=== PATIENT | female | born 1980 | race Hispanic/Latino ===

== ENCOUNTER 2020-02-09 09:40 | Emergency (ER) | payer OTHER ==
[~2020-02-09] VITALS: Ht 160 cm; Wt 88.5 kg
[2020-02-09] MEDS ORDERED: KETOROLAC TROMETHAMINE 30 MG/ML VIAL IV STA (09:55)
--- NOTE | 2020-02-09 10:13 | Emergency Department Note ---
History of Present Illnes History of Present Illness Chief Complaint: Extremity Trauma/Pain History of Present Illness This is a 39 year old female. Complaining of lower back pain radiating down the right leg for 2 days . Historian: Patient Arrival Mode: [facility] Treatment VIDEOTAPE EDITOR: See EMS Report Onset (how long ago): day(s) (for 2 days) Radiation: back, extremity (right lower extremity), flank (pain in the right flank) Severity: moderate Onset quality: gradual Duration (how long): day(s) (2 days) Timing of current episode: constant Progression: worsening Relieving factors: none Exacerbating factors: none Associated symptoms: denies other symptoms Treatments prior to arrival: NSAID (Motrin 600 mg by mouth every 6 hours without relief) Previous service: medications given Past Medical/Family History Physician Review I have reviewed the patient's past medical and family history. Any updates have been documented here. Past Medical History Recent Fever: No Clinical Suspicion of Infectio: No New/Unexplained Change in Ment: No Past Medical History: Hypertension, Diabetes Other Medical History: Patient admits to being noncompliant with medications Past Surgical History: Cholecysctectomy, Social History Smoking Cessation: Never Smoker Counseling Performed: No Alcohol Use: None Any Illegal Drug Use: No TB Exposure/Symptoms: No Physically hurt or threatened: No Family History Family history of heart diseas: No Other Last Tetanus: unk Any Pre-Existing Lines (PICC,: No Is patient up to date on immun: No Last Flu: no Last Pneumovax: no Review of Systems Review of Systems Constitutional: no symptoms EENTM: no symptoms Cardiovascular: no symptoms Respiratory: no symptoms Gastrointestinal: no symptoms Genitourinary: no symptoms Musculoskeletal: no symptoms Neurological: no symptoms Psychological: no symptoms Endocrine: no symptoms Hematological/Lymphatic: no symptoms Review of other systems All other systems reviewed and negative. Physical Exam Related Data Allergies: Coded Allergies: No Known Allergies (Unverified , 02/09/20) Triage Vital Signs Vital Signs Date Time Temp Pulse Resp B/P (MAP) Pulse Ox O2 Delivery O2 Flow Rate FiO2 02/09/20 09:40 98.2 76 18 180/78 100 Vital signs reviewed: Yes Physical Exam CONSTITUTIONAL Constitutional: well-developed, well-nourished, obese (mildly obese) HENT HENT: normocephalic, atraumatic EYES Eyes: PERRL, conjunctivae normal, EOM normal, lids normal NECK Neck: ROM normal, supple PULMONARY Pulmonary: effort normal, breath sounds normal CARDIOVASCULAR Cardiovascular: regular rhythm, heart sounds normal, intact distal pulses, capillary refill normal, normal rate GASTROINTESTINAL Abdominal: soft, nontender, bowel sounds normal, right CVA tenderness GENITOURINARY Genitourinary: exam deferred SKIN Skin: warm, dry MUSCULOSKELETAL Musculoskeletal: ROM normal (pain is elicited in the lower back on the right side when the patient point tenderness of the lower back was noted), other (positive straight leg raises on the right side pain at approximately 30) NEUROLOGICAL Neurological: alert, oriented x 3, DTRs normal, no gross motor or sensory deficits PSYCHOLOGICAL Psychological: mood/affect normal, behavior normal, thought content normal, judgement normal Results Laboratory Laboratory Urinalysis significant for trace protein the test is negative also specific gravity is greater than 1.030 otherwise urinalysis is negative. Electrolytes are significant for inhaled T of 91 and AST of 55 glucose of 143 CBC is unremarkable Imaging Imaging results reviewed: Yes Impressions Noncontrast CT of the abdomen and pelvis basically within normal limits except for a possible right functional ovarian cyst Critical Care Time Subsequent provider I assumed direction of critical care for this patient from another provider of my specialty. Assessment & Plan Reassessment Reassessment time: 11:51 Reassessment Feeling better Assessment & Plan Final Impression: (1) RADICULOPATHY, LUMBAR REGION Assessment & Plan Taking medicines as prescribed follow with your family doctor in 48-72 hours or return to the ER for any further concerns Depart Disposition: HOME, SELF-CARE Last Vital Signs Date Time Temp Pulse Resp B/P (MAP) Pulse Ox O2 Delivery O2 Flow Rate FiO2 02/09/20 09:40 98.2 76 18 180/78 100 Home Meds Active Scripts Acetaminophen With Codeine (TYLENOL WITH CODEINE #3 TABLET) 1 Each Tablet, 300 MG PO QID for pain for 3 Days, #12 TAB 0 Refills Prov:AMELIA SANTIAGO MD 02/09/20 Cyclobenzaprine Hcl (FLEXERIL) 5 Mg Tablet, 1 TAB PO TID for back pain for 5 Days, #15 0 Refills Prov:AMELIA SANTIAGO MD 02/09/20 AMELIA SANTIAGO MD Feb 09, 2020 10:13
--- NOTE | 2020-02-09 11:22 | Diagnostic Imaging Report ---
CT of the abdomen and pelvis. Comparison: None Clinical History: Back and hip pain and right leg pain down the Night Technique: Helical CT scan of the abdomen and pelvis was performed. Intravenous contrast administration was not utilized. Oral contrast administration was not utilized. Coronal and sagittal reconstructions were generated from the raw data. Multiple images were submitted for interpretation. This exam was performed according to our departmental dose-optimization program which includes automated exposure control, adjustment of the mA and/or kV according to patient size Discussion: Inferior chest: Unremarkable. Liver: Unremarkable Spleen: Unremarkable Pancreas: Unremarkable Biliary tree and gallbladder: Post cholecystectomy. Otherwise unremarkable Adrenal glands: Unremarkable Kidneys and ureters: Unremarkable Vasculature: Unremarkable except for minimal calcific atherosclerosis Lymph nodes: Unremarkable Bowel: Unremarkable Pelvis: Urinary bladder is unremarkable. Internal genitalia unremarkable. Possible right functional ovarian cyst. Sensitivity of noncontrast CT or pelvic genitalia is low. Pelvic wall unremarkable. Peritoneum: Unremarkable Perineal compartments: unremarkable. Fluid: No free fluid. 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 Body wall: Unremarkable Impression: No acute abnormality on this exam. Please see above regarding pelvic genitalia. If there is a concern, pelvic ultrasonography may be performed. Signed by: Navdeep Castellon MD on 02/09/2020 11:19 AM
[2020-02-09] MEDS ORDERED: MORPHINE SULFATE 2 MG/ML SYR 1ML IV STA (11:26)
[2020-02-09] MEDS ORDERED: ONDANSETRON HCL 4 MG ORAL DISINTEGRATING TAB PO ONE (11:30)
[2020-02-09] MEDS ORDERED: ONDANSETRON HCL INJ 2MG/ML 2ML 2 MG/ML VIAL ONE (11:38)
[2020-02-09] MEDS ORDERED: MORPHINE SULFATE INJ 4 MG/ML INJ 1ML ONE (11:38)
[2020-02-09 11:49] VITALS: BP 169/77
[2020-02-09] MEDS ORDERED: TYLENOL WITH C1 EACH PO (11:50)
[2020-02-09] MEDS ORDERED: CYCLOBENZAPRINE5 MG PO (11:50)
== END 2020-02-09 12:29 | disposition home or self-care (01) ==
LOC: FSED 09:40
DX: M54.16 Radiculopathy, lumbar region (principal); I10 Essential (primary) hypertension; E11.9 Type 2 diabetes mellitus without complications
CPT/HCPCS: 74176; 80048; 80076; 81003; 81025; 85025; 99283; J1885; J2270; J2405; Q0162